=== PATIENT | male | born 1990 | race Caucasian/White ===

== ENCOUNTER → 2022-06-23 | Day surgery (SDC) | payer MEDICARE, MEDICAID ==
[2022-06-20 13:59] VITALS: BP 131/80
[~2022-06-23] VITALS: Wt 90.7 kg
[2022-06-23] VITALS (11 sets, daily range): BP systolic 114–132; BP diastolic 56–73
[~2022-06-23] MED LIST: CLARITIN10 MG PO; DDAVP0.1 MG PO; DEPAKOTE250 MG PO; DEPAKOTE500 MG PO; MIRALAX119 GM PO; MULTIVITAMINS1 EAC6 PO; ONDANSETRON HYDR4 M1 PO; PERCOCET 5-3251 EACH PO; RISPERDAL3 M1 PO; STOOL SOFTENER240 M2 PO; ZYPREXA10 M1 PO; ZYPREXA15 M1 PO
== END | disposition home or self-care (01) ==
LOC: SDC 06-20 13:15
PROVIDERS: ATTEND Surgery
DX: K40.90 Unilateral inguinal hernia, without obstruction or gangrene, not specified as recurrent (principal); F90.9 Attention-deficit hyperactivity disorder, unspecified type; F20.9 Schizophrenia, unspecified; F41.9 Anxiety disorder, unspecified; Z79.899 Other long term (current) drug therapy